=== PATIENT | female | born 1985 | race Caucasian/White ===

== ENCOUNTER 2019-02-25 11:53 | Observation (INO) ==
[2019-02-25] MEDS ORDERED: MoRPHine SULFATE 10 MG/ML CARP/VIAL SQ STA (13:03)
--- NOTE | 2019-02-25 13:28 | History & Physical Report ---
Date of Service February 25, 2019 Assessment & Plan (1) Antepartum bleeding, second trimester: 33 yo at 16 wks with h/o VB, increased today, pain / ctxs and open cervix, threatened FHR reassuring VSS afebrile Plan observe, monitor, pain control and labs and will discuss with MFM All questions were answered (2) Threatened in second trimester: History of Present Illness Chief Complaint: Vaginal bleeding/ pain, fever/ chills Primary Care Provider: Felton Amaya Patient is a 33 yo at 16 wks who has been having VB since 02/18/19 She passed a cloth and then her bleeding slowed down. She was in office on 02/22 and US showed normal FHR and placenta She started to have fever/ chill attacks yesterday morning Her temp was 99, 100, 101 and 102 this morning. She took Tylenol last nigh and per she broke her fever up this morning. She started to have sever lower abdominal pain/ cramping since 10 am They come and go every 3-5 min and last for about a minute Pain is 10 even 12 / 10 per her. Her bleeding increased this morning as well, she " gushed blood" in toilet No problems with urination nor BM She has h/o IBS but moved her bowels this morning. She has h/o recurrent SAB, 1st one was 6.5 wks but the 3 of them were very early, she had + HPT and strated to bleed and lost. No h/o kidney stones Allergies Allergy/AdvReac Type Severity Reaction Status Date / Time metronidazole [From Flagyl] Allergy Rash Unverified 01/29/19 18:32 Home Medications Home Medications Medication Instructions Recorded Confirmed Type magnesium oxide 400 mg PO BID 06/23/18 01/29/19 History PNV cmb#95-ferrous fumarate-FA 1 tab PO QAM 01/29/19 01/29/19 History [ Multivitamins] loratadine [Claritin] 10 mg PO QAM 01/29/19 01/29/19 History ranitidine HCl 150 mg PO BID 01/29/19 01/29/19 History Patient History Medical History Hiatal hernia GERD (gastroesophageal reflux disease) Osteoarthritis Fibromyalgia affecting forearm History of multiple miscarriages Family History Other No significant family history Social History Preferred Language: Pashto marital status: Single Current Living Situation: Family current occupational status: employed Feels Safe at Home: Yes Smoking Status: Never smoker [employer] History No h/o STD's Review of Systems All systems reviewed & are unremarkable except as noted in HPI & below Physical Exam Constitutional: WD/WN, vitals as above well developed, well nourished and + acute distress (acting like she is having ctxs, laboring) Gastrointestinal (Abdomen): soft, ctxs q 3-4 min, NT in between Genitourinary: SSE: about 10 cc of blood in vagina, cleaned,cervix open 1 cm, no active bleeding Results & Data Vital Signs (Past 12 Hours) Vital Signs Temp Pulse Resp BP 02/25/19 12:14 37.2 C 20 02/25/19 12:13 105 H 134/58 L Monitoring External Monitor FHR 150's Bed side US done: Single IUP, FM's seen, placenta fundal/ posterior, appears normal, no sign of abruption Tocodynamometer Unable to crop picker ctxs, due to small uterus size
[2019-02-25 13:38] LABS: Basophils # (auto) 0.02 K/uL (0-0.2); Basophils % (auto) 0.2 %; Eosinophils # (auto) 0.01 K/uL (0-0.5); Eosinophils % (auto) 0.1 %; Hematocrit (blood only) 35.7 % (37-47); Hemoglobin 12.6 g/dL (12.0-16.0); Immature Granulocytes # (auto) 0.04 K/uL (0.00-0.02); Immature Granulocytes % (auto) 0.3 %; Lymphocytes # (auto) 1.01 K/uL (1.2-3.4); Lymphocytes % (auto) 8.1 %; Mean Corpuscular Hemoglobin 31.8 pg (25-34); Mean Corpuscular Hgb Conc 35.3 g/dL (32-36); Mean Corpuscular Volume 90.2 fL (80-100); Monocytes # (auto) 0.97 K/uL (0.11-0.59); Monocytes % (auto) 7.8 %; Neutrophils # (auto) 10.44 K/uL (1.4-6.5); Neutrophils % (auto) 83.5 %; Platelet Count 223 K/uL (130-400); RDW Coefficient of Variation 12.3 % (11.5-14.5); RDW Standard Deviation 39.8 fL (36.4-46.3); Red Blood Count 3.96 M/uL (4.2-5.4); White Blood Count 12.49 K/uL (4.8-10.8)
[2019-02-25 13:55] LABS: Alanine Aminotransferase 48 U/L (12-78); Albumin Level 3.1 gm/dl (3.4-5.0); Aspartate Aminotransferase 37 U/L (15-37); BUN Creatinine Ratio 4.8 (10-20); Blood Urea Nitrogen 4 mg/dl (7-18); Calcium 9.1 mg/dl (8.5-10.1); Carbon Dioxide 21 mmol/L (21-32); Chloride 105 mmol/L (98-107); Est GFR (African American) 123.1; Est GFR (Non-African American) 106.2; Glucose 96 mg/dl (70-99); Potassium 3.2 mmol/L (3.5-5.1); Sodium 136 mmol/L (136-145)
[2019-02-25 13:58] LABS: Albumin Globulin Ratio 0.8 (0.9-2); Alkaline Phosphatase 91 U/L (45-117); Bilirubin,Total 0.4 mg/dl (0.2-1); Globulin 4.1 gm/dl (2.5-4.0); Total Protein 7.2 gm/dl (6.4-8.2)
--- NOTE | 2019-02-25 13:58 | Ultrasound Report ---
US OB limited CLINICAL HISTORY: 33 years-old Female presenting with Vaginal bleeding, cramping, abruption?, 16 week s with contractions and bleeding since 10:00 AM this morning. TECHNIQUE: Real-time grayscale and M-mode ultrasound imaging of the pelvis was performed using a rosenthal sabdominal probe for a second trimester evaluation. COMPARISON: None. FINDINGS: TRANSABDOMINAL: Transabdominal imaging was performed for a minimally invasive evaluation and to ensur e visualization of global pelvic findings. Bladder: Normal. Uterus: Single live intrauterine . size metrics: Femur length 2.1 cm corresponding to gestational age of 16 weeks 2 days. Biparietal diameter 3.3 cm corresponding to a gestational age of 16 weeks 1 day. heart rate: 151 beats per minute. Orientation: Anteverted uterus. Gestational s ac shape: Normal. Amniotic fluid volume: Normal amniotic fluid volume. Placenta: Posterior placental implantation. No perigestational fluid to suggest hemorrhage. Cervix: Grossly closed. No evidence of placenta previa. Cervical length: 3.5 cm. Right adnexa: Right ovary: Not interrogated. Left adnexa: Left ovary: Not interrogated. Other: No large volume free fluid. IMPRESSION: 1. Cervix closed and measuring 3.5 cm. No evidence of placenta previa. 2. Single live second trimester intrauterine with a gestational age of 16 weeks 1-2 days. This is concordant with the patient's history. Electronically signed by: Zachariah Pelayo M.D. 02/25/2019 1:57 PM
[2019-02-25 14:06] LABS: Fibrinogen 631 mg/dl (184-400); Partial Thromboplastin Time 26.6 Seconds (21.0-31.0); Prothrombin Time 10.3 Seconds (9.0-12.0)
[2019-02-25] MEDS ORDERED: MoRPHine SULFATE 4 MG/ML 1 ML CARP\\VIAL IV STA (14:12)
--- NOTE | 2019-02-25 14:47 | Obstetrical Progress Note ---
Date of Service February 25, 2019 Subjective Patient is reevaluated She received Morphine IV and feels better now She had labs and US: 02/25/19 02/25/19 02/25/19 Range/Units 13:16 13:16 13:16 WBC 12.49 H (4.8-10.8) K/uL RBC 3.96 L (4.2-5.4) M/uL Hgb 12.6 (12.0-16.0) g/dL Hct 35.7 L (37-47) % MCV 90.2 (80-100) fL MCH 31.8 (25-34) pg MCHC 35.3 (32-36) g/dL RDW Std Deviation 39.8 (36.4-46.3) fL RDW Coeff of Oneal 12.3 (11.5-14.5) % Plt Count 223 (130-400) K/uL MPV 9.0 (7.4-10.4) fL Immature Gran % (Auto) 0.3 % Neut % (Auto) 83.5 % Lymph % (Auto) 8.1 % [place] % (Auto) 7.8 % Eos % (Auto) 0.1 % Baso % (Auto) 0.2 % Immature Gran # (Auto) 0.04 H (0.00-0.02) K/uL Neut # (Auto) 10.44 H (1.4-6.5) K/uL Lymph # (Auto) 1.01 L (1.2-3.4) K/uL [place] # (Auto) 0.97 H (0.11-0.59) K/uL Eos # (Auto) 0.01 (0-0.5) K/uL Baso # (Auto) 0.02 (0-0.2) K/uL PT (9.0-12.0) Seconds INR (0.9-1.1) APTT (21.0-31.0) Seconds PTT Ratio Fibrinogen (184-400) mg/dl Sodium 136 (136-145) mmol/L Potassium 3.2 L (3.5-5.1) mmol/L Chloride 105 (98-107) mmol/L Carbon Dioxide 21 (21-32) mmol/L Anion Gap 10.0 (3-11) BUN 4 L (7-18) mg/dl Creatinine 0.75 (0.6-1.2) mg/dl Est Cr Clr Drug Dosing Not Reportable Est GFR ( Amer) 123.1 Est GFR (Non-Af Amer) 106.2 BUN/Creatinine Ratio 4.8 L (10-20) Glucose 96 (70-99) mg/dl Calcium 9.1 (8.5-10.1) mg/dl Total Bilirubin 0.4 (0.2-1) mg/dl AST 37 (15-37) U/L ALT 48 (12-78) U/L Alkaline Phosphatase 91 (45-117) U/L Total Protein 7.2 (6.4-8.2) gm/dl Albumin 3.1 L (3.4-5.0) gm/dl Globulin 4.1 H (2.5-4.0) gm/dl Albumin/Globulin Ratio 0.8 L (0.9-2) Blood Type B Positive Antibody Screen NEGATIVE Mother's Rh Status Maternal Bleed KB Cells Counted /Adult RBC Ratio 02/25/19 02/25/19 Range/Units 13:16 13:16 WBC (4.8-10.8) K/uL RBC (4.2-5.4) M/uL Hgb (12.0-16.0) g/dL Hct (37-47) % MCV (80-100) fL MCH (25-34) pg MCHC (32-36) g/dL RDW Std Deviation (36.4-46.3) fL RDW Coeff of Oneal (11.5-14.5) % Plt Count (130-400) K/uL MPV (7.4-10.4) fL Immature Gran % (Auto) % Neut % (Auto) % Lymph % (Auto) % [place] % (Auto) % Eos % (Auto) % Baso % (Auto) % Immature Gran # (Auto) (0.00-0.02) K/uL Neut # (Auto) (1.4-6.5) K/uL Lymph # (Auto) (1.2-3.4) K/uL [place] # (Auto) (0.11-0.59) K/uL Eos # (Auto) (0-0.5) K/uL Baso # (Auto) (0-0.2) K/uL PT 10.3 (9.0-12.0) Seconds INR 1.0 (0.9-1.1) APTT 26.6 (21.0-31.0) Seconds PTT Ratio 1.0 Fibrinogen 631 H (184-400) mg/dl Sodium (136-145) mmol/L Potassium (3.5-5.1) mmol/L Chloride (98-107) mmol/L Carbon Dioxide (21-32) mmol/L Anion Gap (3-11) BUN (7-18) mg/dl Creatinine (0.6-1.2) mg/dl Est Cr Clr Drug Dosing Est GFR ( Amer) Est GFR (Non-Af Amer) BUN/Creatinine Ratio (10-20) Glucose (70-99) mg/dl Calcium (8.5-10.1) mg/dl Total Bilirubin (0.2-1) mg/dl AST (15-37) U/L ALT (12-78) U/L Alkaline Phosphatase (45-117) U/L Total Protein (6.4-8.2) gm/dl Albumin (3.4-5.0) gm/dl Globulin (2.5-4.0) gm/dl Albumin/Globulin Ratio (0.9-2) Blood Type Antibody Screen Mother's Rh Status Pending Maternal Bleed Pending KB Cells Counted Pending /Adult RBC Ratio Pending US: Single viable IUP, no evidence of previa nor abruption Cervix 3.5 cm Discussed with MFM at [facility] [place], recommended expectant management with pain miley gement, IVF, Observation at hospital and no tocolytics I discussed above wth the patient and she is aware of management plan and prognosis, threatened or improvement of ctxs and bleeding and possible d/c home tomorrow All questions were answered Results & Data Vital Signs (Past 12 Hours) Vital Signs Temp Pulse Resp BP 02/25/19 12:14 37.2 C 20 02/25/19 12:13 105 H 134/58 L
[2019-02-25] MEDS ORDERED: LACTATED RINGER'S 1,000 ML IV ONE (14:50)
--- NOTE | 2019-02-25 16:06 | Obstetrical Progress Note ---
Date of Service February 25, 2019 Subjective Patient is reevaluated She got up to BR and passed a cloth Her pain is better now, 5/10, spaced out as well Bed side US repeated: FHR 140's, FM's seen, cervix appears the same, still 2.5 cm long and minimal dilatation on it ( 1 cm per SSE) Continue to observe, monitor All questions were answered Results & Data Vital Signs (Past 12 Hours) Vital Signs Temp Pulse Resp BP 02/25/19 12:14 37.2 C 20 02/25/19 12:13 105 H 134/58 L
[2019-02-25] MEDS: LACTATED RINGER'S 1,000 ML IV PRN ×2 (17:46→22:27)
[2019-02-25] MEDS: MoRPHine SULFATE 4 MG/ML 1 ML CARP\\VIAL IV PRN (18:38)
[2019-02-25] MEDS: MAGNESIUM OXIDE 400 MG TAB PO SCH (20:53)
--- NOTE | 2019-02-25 21:46 | Obstetrical Progress Note ---
Date of Service February 25, 2019 Subjective Patient is re-evaluated Feel much better, ctxs spaced out q 10-15 min, lasting shorter and less painful Bleeding slowed down as well, no more cloths, has not soaked any peds yet VSS Afebrile K-B test negative Plan to observe, monitor, repeat labs in am All questions were answered Results & Data Vital Signs (Past 12 Hours) Vital Signs Temp Pulse Resp BP 02/25/19 19:30 36.7 C 106 H 114/67 02/25/19 18:42 36.8 C 109 H 101/62 02/25/19 12:14 37.2 C 20 02/25/19 12:13 105 H 134/58 L
[2019-02-26] MEDS: ACETAMINOPHEN 325 MG TAB PO PRN ×2 (00:16→06:03)
--- NOTE | 2019-02-26 02:14 | Obstetrical Progress Note ---
Date of Service February 26, 2019 Subjective Patient is re-evaluated Feel much better, ctxs spaced out q 10-15 min, lasting shorter and less painful Bleeding slowed down as well, no more cloths, has not soaked any peds yet VSS Afebrile K-B test negative Plan to observe, monitor, repeat labs in am All questions were answered Results & Data Vital Signs (Past 12 Hours) Vital Signs Temp Pulse Resp BP 02/26/19 00:04 39.1 C H 103 H 18 112/53 L 02/26/19 00:03 100 H 89/50 L 02/25/19 19:30 36.7 C 106 H 114/67 02/25/19 18:42 36.8 C 109 H 101/62
--- NOTE | 2019-02-26 02:16 | Obstetrical Progress Note ---
Date of Service February 26, 2019 Subjective Patient felt hot ( was under warm blankets) and her temp was 39.1 Now feels better, up in the room No more ctxs nor bleeding No abdominal pain/ N&V Repeat Temp: 37 FHR 150's Abd: soft, NT Continue to monitor closely Results & Data Vital Signs (Past 12 Hours) Vital Signs Temp Pulse Resp BP 02/26/19 00:04 39.1 C H 103 H 18 112/53 L 02/26/19 00:03 100 H 89/50 L 02/25/19 19:30 36.7 C 106 H 114/67 02/25/19 18:42 36.8 C 109 H 101/62
[2019-02-26] MEDS: LACTATED RINGER'S 1,000 ML IV PRN ×3 (06:09→23:37)
[2019-02-26 06:53] LABS: Basophils # (auto) 0.01 K/uL (0-0.2); Basophils % (auto) 0.1 %; Hematocrit (blood only) 28.1 % (37-47); Hemoglobin 10.1 g/dL (12.0-16.0); Immature Granulocytes # (auto) 0.03 K/uL (0.00-0.02); Immature Granulocytes % (auto) 0.3 %; Lymphocytes # (auto) 0.66 K/uL (1.2-3.4); Lymphocytes % (auto) 6.2 %; Mean Corpuscular Hemoglobin 32.4 pg (25-34); Mean Corpuscular Hgb Conc 35.9 g/dL (32-36); Mean Corpuscular Volume 90.1 fL (80-100); Mean Platelet Volume 8.8 fL (7.4-10.4); Monocytes # (auto) 0.72 K/uL (0.11-0.59); Monocytes % (auto) 6.8 %; Neutrophils # (auto) 9.23 K/uL (1.4-6.5); Neutrophils % (auto) 86.6 %; Platelet Count 164 K/uL (130-400); RDW Coefficient of Variation 12.6 % (11.5-14.5); RDW Standard Deviation 40.8 fL (36.4-46.3); Red Blood Count 3.12 M/uL (4.2-5.4); White Blood Count 10.65 K/uL (4.8-10.8)
[2019-02-26 07:00] LABS: Appearance Urine Clear (Clear); Bilirubin Urine Negative (Negative); Blood Urine Negative (Negative); Color Urine Yellow; Glucose Urine UA Negative (Negative); Ketones Urine 1+ (Negative); Leukocyte Esterase Urine Negative (Negative); Nitrite Urine Negative (Negative); Protein Urine Negative (Negative); Specific Gravity Urine 1.008 (1.000-1.030); Urobilinogen Urine Negative (Negative); pH Urine 6.5 (4.5-7.5)
--- NOTE | 2019-02-26 07:03 | Obstetrical Progress Note ---
Date of Service February 26, 2019 Subjective Patient is seen and examined She had another episode of fever/ chills Temp: 38.9 No more abdominal pain and bleEding is scant No flu or cold symptoms No cough/ sore throat No dysuria/ diarrhea/ N&V CVS: S1S2 RRR Lungs: CTAB Abd: soft, NT, gravid Ext; NT no edema AP: 33 yo at 16.1 wks with VB, contractions, stopped after IVF and pain control with Morphine Febrile episodex2 Unlikely PPROM given normal IVF volume Normal Labs pending Will consult Hospitalist Start AB: Cefazolin and Clindamycin Conitnue to monitor closely Results & Data Vital Signs (Past 12 Hours) Vital Signs Temp Pulse Pulse Resp BP BP 02/26/19 05:40 38.9 C H 02/26/19 04:00 37.4 C 86 18 108/72 02/26/19 02:10 37.0 C 02/26/19 00:04 39.1 C H 103 H 18 112/53 L 02/26/19 00:03 100 H 89/50 L 02/25/19 19:30 36.7 C 106 H 114/67
[2019-02-26 07:06] LABS: Partial Thromboplastin Time 28.1 Seconds (21.0-31.0); Prothrombin Time 10.7 Seconds (9.0-12.0)
[2019-02-26 07:21] LABS: Fibrinogen 451 mg/dl (184-400)
[2019-02-26] MEDS ORDERED: CEFAZOLIN 2000MG 2,000 MG/15 ML SYR IV SCH (07:30)
[2019-02-26] MEDS ORDERED: PRENATAL VITAMIN 1 TAB PO SCH (09:00)
[2019-02-26] MEDS: CLINDAMYCIN 900 MG in DEXTROSE 5% 50 ML IV SCH ×2 (09:01→16:24)
[2019-02-26] MEDS: LORATADINE 10 MG TAB PO SCH (09:01)
[2019-02-26] MEDS ORDERED: Nursing to Pharmacy Communication ONE (09:13)
--- NOTE | 2019-02-26 09:15 | Hospitalist Consultation ---
Date of Consultation February 26, 2019 Assessment & Plan (1) Fever: -Patient admitted on 02/25 for observation of antepartum bleeding -Patient reports fevers for the past 3 days -24-hour T-max 39.1 -UA does not suggest infection; no pulmonary symptoms -Due to patient's reports of recent camping, will check Lyme titers; no pancytopenia or elevated LFTs noted on labs and therefore will not evaluate for anaplasmosis at this time -Started on empiric clindamycin and cefazolin as per OB, will continue for now -Does not appear septic -Follow blood and urine cultures (2) Antepartum bleeding, second trimester: -Management as per OB -Hgb stable (3) DVT prophylaxis: -SCDs, ambulate Supervising Physician Co-Signing Physician Notes Attending addendum: The patient was seen and examined in the presence of family members He has been complaining of fever 2 days prior to admission Did not have any other symptoms except nonspecific arthralgia/arthritis and body aches No cough and/or shortness of breath and no problem with urine and about Still having sweating and feeling of cold at times On examination Hemodynamically stable No apparent distress at rest Chest-clear to auscultate bilaterally Heart-S1-S2 regular, no murmur appreciated Abdomen-not examined Extremities-negative Her labs reviewed As fever likely due to viral illness no source of infection identified, Lyme titer was negative Will check peripheral blood smear for possible inclusion body disease and check C. difficile toxin as well Agree with assessment and plan as outlined above by Holli Ramirez History of Present Illness Reason for Consultation: Fever Requesting Physician: Dr. Davison Attending Physician: Dr. Ramirez History of Present Illness 33-year-old female who was admitted to the hospital on 02/25 for bleeding in her second trimester. Patient is currently 16 weeks . Hospitalist was consulted for management of fever. Patient reports she started developing fever and chills 2 days ago. She reports a fever as high as 102 at home. She was taking Tylenol with relief from the fevers. Patient was also bleeding/passing clots. She was admitted to the OB unit for observation. Patient reports urinary frequency however denies dysuria. Appetite has been poor over the past couple of days however she denies nausea, vomiting, diarrhea, abdominal pain. No chest pain. She reports some occasional shortness of breath and palpitations which have been going on for the past few months. Some occasional lig htheadedness and dizziness but denies any syncopal events. She denies any recent sick contacts. Patient was camping about 1 week ago. No other travel outside the country. At the time my exam, patient is resting in bed in no acute distress. Allergies Allergy/AdvReac Type Severity Reaction Status Date / Time metronidazole [From Flagyl] Allergy Rash Verified 02/25/19 18:14 Home Medications Home Medications Medication Instructions Recorded Confirmed Type loratadine [Claritin] 10 mg PO DAILY 02/25/19 02/25/19 History magnesium oxide 800 mg PO HS 02/25/19 02/25/19 History vit-iron fum-folic ac 1 tab PO DAILY 02/25/19 02/25/19 History [ Vitamin] ranitidine HCl [Zantac 75] 150 mg PO BID 02/25/19 02/25/19 History Patient History Medical History History of multiple miscarriages (Chronic) IBS (irritable bowel syndrome) (Chronic) Raynaud's disease (Chronic) Fibromyalgia (Chronic) Hiatal hernia (Chronic) GERD (gastroesophageal reflux disease) (Chronic) Osteoarthritis (Chronic) Family History Mother Bone cancer Social History Preferred Language: Turkish Beliefs That Will Affect Care: None marital status: Single Current Living Situation: Significant Other current occupational status: employed Other Information That Helps Us Care for You: No Feels Safe at Home: Yes Safety Concerns: Feels Safe At This Time Smoking Status: Never smoker Hx Alcohol Use: No Review of Systems Review of Systems: ROS per HPI, all other systems reviewed and negative Physical Exam Constitutional: WD/WN, vitals as above Eyes: PERRL, conjunctivae normal, anicteric sclerae ENMT: external ear and nose normal, oropharynx normal Respiratory: normal respiratory effort, lungs clear to auscultation Cardiovascular: Rate/Rhythm: regular rate and regular rhythm Vessels: normal peripheral pulses Extremities: no edema Gastrointestinal (Abdomen): normal bowel sounds, soft, nontender, no hepatosplenomegaly Musculoskeletal: no cyanosis or clubbing, extremities motor strength 5/5 Skin: no rashes, warm and dry Neurologic: PERRL, EOMI, accommodation nl, no face palsy, no dysarthria Psychiatric: A+Ox3, euthymic affect Results & Data Vital Signs (Past 12 Hours) Vital Signs Temp Pulse Pulse Resp BP BP Pulse Ox 02/26/19 08:08 36.7 C 98 H 20 108/61 99 02/26/19 05:40 38.9 C H 02/26/19 04:00 37.4 C 86 18 108/72 02/26/19 02:10 37.0 C 02/26/19 00:04 39.1 C H 103 H 18 112/53 L 02/26/19 00:03 100 H 89/50 L Laboratory Results Short CBC 02/25/19 02/26/19 Range/Units 13:16 06:19 WBC 12.49 H 10.65 (4.8-10.8) K/uL Hgb 12.6 10.1 L (12.0-16.0) g/dL Hct 35.7 L 28.1 L (37-47) % Plt Count 223 164 (130-400) K/uL BMP 02/25/19 13:16 Sodium 136 Potassium 3.2 L Chloride 105 Carbon Dioxide 21 BUN 4 L Creatinine 0.75 Glucose 96 Calcium 9.1 Liver Function 02/25/19 Range/Units 13:16 Total Bilirubin 0.4 (0.2-1) mg/dl AST 37 (15-37) U/L ALT 48 (12-78) U/L Alkaline Phosphatase 91 (45-117) U/L Albumin 3.1 L (3.4-5.0) gm/dl Urine 02/26/19 Range/Units 06:00 Urine Color Yellow Urine Appearance Clear (Clear) Urine pH 6.5 (4.5-7.5) Ur Specific [place] 1.008 (1.000-1.030) Urine Protein Negative (Negative) Urine Glucose (UA) Negative (Negative)
[2019-02-26 09:30] LABS: BUN Creatinine Ratio 6.1 (10-20); Blood Urea Nitrogen 3 mg/dl (7-18); Calcium 8.7 mg/dl (8.5-10.1); Carbon Dioxide 23 mmol/L (21-32); Chloride 109 mmol/L (98-107); Est GFR (African American) 145.7; Est GFR (Non-African American) 125.7; Glucose 87 mg/dl (70-99); Magnesium 2.1 mg/dl (1.8-2.4); Potassium 3.4 mmol/L (3.5-5.1); Sodium 140 mmol/L (136-145)
[2019-02-26] MEDS: ONDANSETRON INJ 2 MG/ML 2 ML VIAL IV PRN ×2 (09:44→13:40)
[2019-02-26 11:09] LABS: Lyme Ab IgG w/WB Rflx Negative (Negative)
[2019-02-26 11:17] LABS: Lyme Ab IgM w/WB Rflx Negative (Negative)
[2019-02-26] MEDS ORDERED: CEFAZOLIN 2,000 MG in DEXTROSE 5% 50 ML IV SCH (16:00)
[2019-02-26] MEDS: MoRPHine SULFATE 4 MG/ML 1 ML CARP\\VIAL IV PRN ×2 (16:35→18:52)
[2019-02-26] MEDS: MAGNESIUM OXIDE 400 MG TAB PO SCH (17:13)
[2019-02-26] MEDS ORDERED: MoRPHine SULFATE 2 MG/ML CARP IV PRN (18:52)
--- NOTE | 2019-02-26 18:54 | Obstetrical Progress Note ---
Date of Service February 26, 2019 Subjective Patient seen and examined She passed some clots from vagina with increasing abdominal pain 10/10 intensity Will continue expectant management Morphine IV prn pain Physical Exam Constitutional: WD/WN, vitals as above Results & Data Vital Signs (Past 12 Hours) Vital Signs Temp Pulse Resp BP Pulse Ox 02/26/19 16:00 37.4 C 112 H 20 112/71 100 02/26/19 11:50 37.2 C 96 H 18 96/48 L 100 02/26/19 08:08 36.7 C 98 H 20 108/61 99
[2019-02-26] MEDS ORDERED: ACETAMINOPHEN 1,000 MG/100 ML VIAL IV PRN (22:26)
[2019-02-26] MEDS ORDERED: LORazepam 1 MG/2 ML VIAL IV ONE (23:30)
[2019-02-26] MEDS ORDERED: MoRPHine SULFATE 4 MG/ML 1 ML CARP\\VIAL ONE (23:32)
[2019-02-26] MEDS ORDERED: miSOPROStol 200 MCG TAB ONE (23:37)
[2019-02-26] MEDS: CEFAZOLIN 2,000 MG in DEXTROSE 5% 50 ML IV SCH ×2 (23:52→23:57)
[2019-02-27] MEDS ORDERED: BENZOCAINE 20% AER SPR 82.5 GM CAN EXT PRN (00:12)
[2019-02-27] MEDS ORDERED: HYDROCORTISONE ACETATE 25 MG SUPP PR PRN (00:12)
[2019-02-27] MEDS ORDERED: BISACODYL 10 MG SUPP PR PRN (00:12)
[2019-02-27] MEDS ORDERED: OXYTOCIN 30 UNITS/500 ML BAG IV PRN (00:12)
[2019-02-27] MEDS ORDERED: miSOPROStol 200 MCG TAB PR ONE ×2 (00:12→01:55)
[2019-02-27] MEDS ORDERED: MEASLES, MUMPS & RUBELLA VIRUS VIAL SQ ONE (00:12)
[2019-02-27] MEDS ORDERED: IBUPROFEN 600 MG TAB PO PRN ×2 (00:12→01:43)
[2019-02-27] MEDS ORDERED: SUPERCREAM 0.870% 15 GM JAR EXT PRN (00:12)
[2019-02-27] MEDS ORDERED: ACETAMINOPHEN 325 MG TAB PO PRN ×2 (00:12→01:43)
[2019-02-27] MEDS ORDERED: DIPHTHERIA/TETANUS/PERTUSSIS 0.5 ML SYR/VIAL IM ONE (00:12)
[2019-02-27] MEDS ORDERED: LACTATED RINGER'S 1,000 ML IV SCH ×2 (00:15→01:45)
--- NOTE | 2019-02-27 00:43 | History & Physical Bridge Note ---
Date of Service February 27, 2019 History & Physical Bridge Note I have examined the patient, reviewed the History & Physical and in the interval since the performance of the History & Physical I have noted the following changes of clinical significance: no changes noted
--- NOTE | 2019-02-27 00:50 | Delivery Summary ---
Vaginal Delivery Summary Date of Service February 27, 2019 Vaginal Delivery Summary female at 16.2 weeks over intact perineum with Apgars pending. Baby had arm movement and heartbeat at delivery then shortly thereafter. Placenta remained in uterus. Cytotec 1000 mcg given but no delivery of placenta. Patient continues to have vaginal bleeding and will do a D&C to remove placenta and control bleeding. Final sponge and instrument count are correct. [id number] ml. Consents signed. Anesthesia and OR notified.
--- NOTE | 2019-02-27 00:57 | Anesthesiology Consultation ---
Date of Service February 27, 2019 Assessment & Plan (1) Encounter for pre-operative examination: Chart Review Chart Review: Acceptable Risk for Surgery and Patient NOT seen in Pre Admission Testing Consults Requested none History Surgery Operation Date: 02/27/19 01:00 Proposed Procedures p Dilatation and Evacuation - Ravin Hoang MD Allergies Allergy/AdvReac Type Severity Reaction Status Date / Time metronidazole [From Flagyl] Allergy Rash Verified 02/25/19 18:14 Medications Home Medications Medication Instructions Recorded Confirmed Last Taken loratadine [Claritin] 10 mg PO DAILY 02/25/19 02/25/19 02/25/19 08:00 magnesium oxide 800 mg PO HS 02/25/19 02/25/19 02/24/19 21:00 vit-iron fum-folic ac 1 tab PO DAILY 02/25/19 02/25/19 02/25/19 08:00 [ Vitamin] ranitidine HCl [Zantac 75] 150 mg PO BID 02/25/19 02/25/19 02/25/19 08:00 Active Medications Generic Name Dose Route Start Last Admin Trade Name Freq PRN Reason Stop Dose Admin Acetaminophen 650 mg 02/25/19 14:42 02/26/19 06:03 Tylenol PO 03/27/19 14:41 650 mg Q4H PRN Administration Pain Lactated Ringer's 1,000 mls @ 125 mls/hr 02/25/19 13:00 02/26/19 23:37 Lr IV 03/27/19 12:59 125 mls/hr .Q8H PRN Administration L&D Protocol Protocol Clindamycin Phosphate 900 mg/ 56 mls @ 112 mls/hr 02/26/19 07:00 02/26/19 16:54 Dextrose IV 03/08/19 06:59 Infused Q8H MELVI Infusion Cefazolin Sodium 2,000 mg/ 65 mls @ 130 mls/hr 02/27/19 00:00 02/26/19 23:57 Dextrose IV 03/08/19 07:59 130 mls/hr Q8H MELVI Administration Acetaminophen 1,000 mg in 100 mls @ 400 mls/hr 02/26/19 22:26 02/26/19 22:58 Ofirmev IV 03/28/19 22:25 Infused Q8H PRN Infusion Pain Loratadine 10 mg 02/26/19 09:00 08/09/19 09:01 Claritin PO 03/28/19 08:59 10 mg QAM MELVI Administration Morphine Sulfate 2 mg 02/26/19 18:52 02/26/19 21:42 Morphine Sulfate IV 03/11/19 14:42 2 mg Q1HWA PRN Administration Pain Ondansetron HCl 4 mg 02/25/19 13:00 02/26/19 13:40 Zofran IV 03/27/19 12:59 4 mg Q4H PRN Administration Nausea And Vomiting Prenat Multivit/[place]/Iron/Folic Ac 1 tab 02/26/19 09:00 02/26/19 09:01 Vitamin PO 03/28/19 08:59 1 tab QAM MELVI Administration Ranitidine HCl 150 mg 02/25/19 21:00 02/26/19 20:53 Zantac PO 03/27/19 20:59 150 mg BID MELVI Administration Past Medical History Medical History History of multiple miscarriages (Chronic) IBS (irritable bowel syndrome) (Chronic) Raynaud's disease (Chronic) Fibromyalgia (Chronic) Hiatal hernia (Chronic) GERD (gastroesophageal reflux disease) (Chronic) Osteoarthritis (Chronic) Retained placenta with hemorrhage Past Family History Family History Mother Bone cancer Social History Smoking Status: Never smoker Hx Alcohol Use: No substance use type: other Substance Use Type Other:: HAS MEDICAL MARIJUANA CARD. HAS NOT USED SINCE + HPT. Physical Exam Vital Signs Last Vital Signs Temp 37.4 C 02/26/19 19:45 Pulse 118 H 02/27/19 00:56 Resp 18 02/26/19 19:45 BP 116/66 02/27/19 00:56 Pulse Ox 98 02/26/19 19:45 Testing Laboratory Results 02/26/19 06:19 02/26/19 08:48 PT 10.7 Seconds (9.0-12.0) 02/26/19 06:19 INR 1.0 (0.9-1.1) 02/26/19 06:19 APTT 28.1 Seconds (21.0-31.0) 02/26/19 06:19 Urine Color Yellow 02/26/19 06:00 Urine Appearance Clear (Clear) 02/26/19 06:00 Urine pH 6.5 (4.5-7.5) 02/26/19 06:00 Ur Specific [place] 1.008 (1.000-1.030) 02/26/19 06:00 Urine Protein Negative (Negative) 02/26/19 06:00 Urine Glucose (UA) Negative (Negative) 02/26/19 06:00 Urine Ketones 1+ (Negative) H 02/26/19 06:00 Urine Nitrite Negative (Negative) 02/26/19 06:00 Ur Leukocyte Esterase Negative (Negative) 02/26/19 06:00 Blood Type B Positive 02/25/19 13:16 Antibody Screen NEGATIVE 02/25/19 13:16
[2019-02-27] MEDS ORDERED: fentaNYL citrate 100 MCG/2 ML VIAL ONE (01:01)
[2019-02-27] MEDS ORDERED: LIDOCAINE HCL 2% 2 ML VIAL/AMP(20MG/ML) INFIL ONE (01:02)
[2019-02-27] MEDS ORDERED: PROPOFOL IV EMULSION 10 MG/ML 20 ML VIAL IV ONE (01:02)
[2019-02-27] MEDS ORDERED: HYDROmorphone INJ 1 MG/ML SYRINGE IV PRN (01:14)
[2019-02-27] MEDS ORDERED: MEPERIDINE HCL 25 MG/ML CARP IV PRN (01:14)
[2019-02-27] MEDS ORDERED: ONDANSETRON INJ 2 MG/ML 2 ML VIAL IV PRN (01:14)
[2019-02-27] MEDS ORDERED: ATROPINE SULFATE 0.1 MG/ML 10ML SYR IV PRN (01:14)
[2019-02-27] MEDS ORDERED: ePHEDrine sulfate 50 MG/ML AMP IV PRN (01:14)
[2019-02-27] MEDS ORDERED: PHENYLEPHRINE 100MCG/ML 5ML SYR IV PRN (01:14)
[2019-02-27] MEDS ORDERED: fentaNYL citrate 100 MCG/2 ML VIAL IV PRN (01:14)
[2019-02-27] MEDS ORDERED: LABETALOL HCL IV 5 MG/ML 20ML IV PRN (01:14)
[2019-02-27] MEDS ORDERED: miSOPROStol 200 MCG TAB ONE (01:26)
[2019-02-27] MEDS ORDERED: DEXAMETHASONE SOD INJ 4 MG/ML VIAL ONE (01:30)
[2019-02-27] MEDS ORDERED: ONDANSETRON INJ 2 MG/ML 2 ML VIAL ONE (01:30)
[2019-02-27] MEDS ORDERED: OXYTOCIN 10 UNITS/ML VIAL ONE (01:34)
--- NOTE | 2019-02-27 01:39 | Post Operative Brief Note ---
Immediate Post Op Note v1 Date of Surgery February 27, 2019 Pre & Post Diagnosis Operation Date: 02/27/19 01:00 Pre-Op Diagnosis: Retained placenta Post-Op Diagnosis: Retained placenta Procedure Operation Date: 02/27/19 01:00 Actual Procedures p Dilatation, Evacuation, and Curettage - Ravin Hoang MD Surgeon Ravin Hoang MD Factory Representative none Estimated Blood Loss 150 Findings Consistent with Post-Op Diagnosis retained placenta Fluids 600 ml Specimens placenta Anesthesia Type General Complications none Disposition Accompanied Patient To Recovery: Yes Disposition: Surgical ICU Overlapping Procedure I was present for: the critical portions of procedure. I was immediately available: during the entire case. Back up surgeon: was not required during procedure.
[2019-02-27] MEDS ORDERED: KETOROLAC 30 MG/ML VIAL IV PRN (01:43)
[2019-02-27] MEDS ORDERED: ACETAMINOPHEN 1,000 MG/100 ML VIAL IV PRN (01:43)
[2019-02-27] MEDS ORDERED: MoRPHine SULFATE 2 MG/ML CARP IV PRN (01:43)
--- NOTE | 2019-02-27 01:54 | Anesthesiology Progress Note ---
Date of Service February 27, 2019 Anesthesia Post Procedure Vital Signs Vital Signs: Temp Pulse Pulse Resp BP BP Pulse Ox 02/27/19 00:56 118 H 116/66 02/27/19 00:46 120 H 110/65 02/27/19 00:42 112 H 114/59 L 02/27/19 00:15 37.1 C 18 02/26/19 19:45 37.4 C 114 H 18 98 02/26/19 16:00 37.4 C 112 H 20 112/71 100 02/26/19 11:50 37.2 C 96 H 18 96/48 L 100 02/26/19 08:08 36.7 C 98 H 20 108/61 99 02/26/19 05:40 38.9 C H 02/26/19 04:00 37.4 C 86 18 108/72 02/26/19 02:10 37.0 C Pain Intensity Bilateral Back: Pain Intensity: 3 Transfer of Care Handoff Completed per policy Notes Mental Status: alert / awake / arousable Patient Amnestic to Procedure: Yes Nausea / Vomiting: adequately controlled Pain: adequately controlled Airway Patency, RR, SpO2: stable & adequate BP & HR: stable & adequate Hydration State: stable & adequate Anesthetic Complications: no major complications apparent and Pt Satisfied with anesthetic care Notes: The patient is awake and stable.
--- NOTE | 2019-02-27 01:56 | Post Operative Brief Note ---
Immediate Post Op Note v1 Date of Surgery February 27, 2019 Pre & Post Diagnosis Operation Date: 02/27/19 01:00 Pre-Op Diagnosis: Retained placenta Post-Op Diagnosis: Retained placenta Procedure Operation Date: 02/27/19 01:00 Actual Procedures p Dilatation, Evacuation, and Curettage - Ravin Hoang MD Surgeon Ravin Hoang MD Territory Account Executive none Estimated Blood Loss 150 Findings Consistent with Post-Op Diagnosis Specimens placenta Anesthesia Type General
--- NOTE | 2019-02-27 05:30 | Operative Report ---
PREOPERATIVE DIAGNOSIS: Retained placenta. POSTOPERATIVE DIAGNOSIS: Retained placenta. PROCEDURE: D&C. SURGEON: Ravin Hoang MD SPRING ASSEMBLER SUPERVISOR: None. ANESTHESIA: General. COMPLICATIONS: None. FINDINGS: Retained placenta. TOTAL FLUIDS: 600 mL. EBL: 150 mL. Cobian catheter drained 400 mL clear urine. COMPLICATIONS: None. CLINICAL HISTORY: The patient is a 33-year-old female para 0-0-4-0 who delivered a nonviable fetus at 16.2 weeks. She had a retained placenta with bleeding and was taken to the OR for retained placenta. CLINICAL FINDINGS AND SURGERY: The patient is a 33-year-old female who had informed consent. Consents signed. The patient was then placed in the dorsal lithotomy position after general anesthesia. Timeout was called prior to the start of the procedure. The bladder was emptied of 400 mL of clear urine. The vagina was full of clots which were sucked out with suction machine. A single ring forceps were placed on the anterior lip of the cervix. Weighted speculum was in the posterior vault. Another ring forceps were then used to grasp the placenta which was removed manually in several pieces. A sharp horseshoe curet was then used curetting out minimal amounts of tissue. Pitocin was started in the IV. No active bleeding was noted. At the end of the procedure, 1000 mcg of Cytotec were placed rectally. The final sponge, needle and instrument count were found to be correct. All remaining instruments were removed. The patient was then placed supine on a stretcher and taken to recovery room in stable condition.
[2019-02-27 07:36] LABS: Basophils # (auto) 0.01 K/uL (0-0.2); Basophils % (auto) 0.1 %; Hematocrit (blood only) 24.3 % (37-47); Hemoglobin 8.7 g/dL (12.0-16.0); Immature Granulocytes # (auto) 0.04 K/uL (0.00-0.02); Immature Granulocytes % (auto) 0.3 %; Lymphocytes # (auto) 0.81 K/uL (1.2-3.4); Lymphocytes % (auto) 6.4 %; Mean Corpuscular Hemoglobin 31.6 pg (25-34); Mean Corpuscular Hgb Conc 35.8 g/dL (32-36); Mean Corpuscular Volume 88.4 fL (80-100); Mean Platelet Volume 8.9 fL (7.4-10.4); Monocytes # (auto) 0.16 K/uL (0.11-0.59); Monocytes % (auto) 1.3 %; Neutrophils # (auto) 11.66 K/uL (1.4-6.5); Neutrophils % (auto) 91.9 %; Platelet Count 170 K/uL (130-400); RDW Coefficient of Variation 12.7 % (11.5-14.5); RDW Standard Deviation 40.8 fL (36.4-46.3); Red Blood Count 2.75 M/uL (4.2-5.4); White Blood Count 12.68 K/uL (4.8-10.8)
[2019-02-27] MEDS ORDERED: DOCUSATE SODIUM 100 MG CAP PO SCH (08:00)
[2019-02-27] MEDS ORDERED: PRENATAL VITAMIN 1 TAB PO SCH (08:00)
[2019-02-27] MEDS ORDERED: NON-FORMULARY MEDICATION (Prenatal Vit-Iron Fum-Folic Ac [Prenatal Vitamin] 1 TAB) PO SCH (09:00)
[2019-02-27] MEDS ORDERED: LORATADINE 10 MG TAB PO SCH (09:00)
[2019-02-27] MEDS: LORATADINE 10 MG TAB PO SCH (10:11)
--- NOTE | 2019-02-27 10:44 | Obstetrical Progress Note ---
Date of Service February 27, 2019 Assessment & Plan (1) demise before 20 weeks with retention of fetus: demise at 16 weeks s/p D&E for retained placenta' pt doing well' d/c home with instructions Subjective Ambulation: ambulating normally Voiding: no voiding problems Passing Gas:: Yes Diet Tolerance:: regular diet Lochia:: Small Feeding Type:: breast feeding Review of Systems All systems reviewed & are unremarkable except as noted in HPI & below Physical Exam Constitutional WD/WN, vitals as above well developed and well nourished Eyes PERRL, conjunctivae normal, anicteric sclerae Neck trachea midline, no thyromegaly Respiratory normal respiratory effort, lungs clear to auscultation Auscultation: no crackles, no rales and no wheezes Cardiovascular RRR, no murmur, no edema Gastrointestinal (Abdomen) normal bowel sounds, soft, nontender, no hepatosplenomegaly Uterus is below umbilicus Musculoskeletal no cyanosis or clubbing, extremities motor strength 5/5 Skin no rashes, warm and dry Neurologic patellar DTR's 2+ bilat, sensation intact Psychiatric A+Ox3, euthymic affect Genitourinary normal external appearance Results & Data Vital Signs (Past 12 Hours) Vital Signs Temp Pulse Pulse Pulse Resp BP BP 02/27/19 08:50 36.4 C L 88 16 102/66 02/27/19 06:10 36.8 C 101 H 18 108/65 02/27/19 05:10 36.8 C 97 H 18 111/75 02/27/19 04:10 37.5 C 98 H 18 112/73 02/27/19 03:40 37.3 C 94 H 18 95/63 L 02/27/19 03:05 36.8 C 88 18 100/67 02/27/19 02:50 37.1 C 105 H 18 108/72 02/27/19 02:30 37.0 C 87 16 108/64 02/27/19 02:20 37.0 C 89 16 106/61 02/27/19 02:10 36.8 C 879 H 16 110/49 L 02/27/19 02:00 36.8 C 89 16 108/50 L 02/27/19 01:51 36.8 C 108 H 16 110/58 L 02/27/19 00:56 118 H 116/66 08/10/19 00:46 120 H 110/65 02/27/19 00:42 112 H 114/59 L 02/27/19 00:15 37.1 C 18 Pulse Ox 02/27/19 08:50 100 02/27/19 06:10 100 02/27/19 05:10 97 02/27/19 04:10 97 02/27/19 03:40 94 02/27/19 03:05 94 02/27/19 02:50 96 02/27/19 02:30 95 02/27/19 02:20 94 02/27/19 02:10 95 02/27/19 02:00 94 02/27/19 01:51 98 02/27/19 00:56 02/27/19 00:46 02/27/19 00:42 02/27/19 00:15
--- NOTE | 2019-02-27 17:34 | Hospitalist Progress Note ---
Date of Service February 27, 2019 Assessment & Plan (1) Fever: -Patient admitted on 02/25 for observation of antepartum bleeding -Patient reports fevers for the past 3 days -24-hour T-max 39.1 -UA does not suggest infection; no pulmonary symptoms -Due to patient's reports of recent camping, will check Lyme titers; no pancytopenia or elevated LFTs noted on labs and therefore will not evaluate for anaplasmosis at this time -Started on empiric clindamycin and cefazolin as per OB, will continue for now -Does not appear septic -Follow blood and urine cultures-negative -Remained afebrile since yesterday and white count remained normal -The patient was discharged this morning (2) Antepartum bleeding, second trimester: -Management as per OB -Hgb stable -Has had presented delivery and the baby -Retained placenta-management as per SUPERINTENDENT TRANSPORTATION (3) DVT prophylaxis: -SCDs, ambulate Medically stable to be discharged Subjective 02/26 The patient was seen and examined in the presence of family members He has been complaining of fever 2 days prior to admission Did not have any other symptoms except nonspecific arthralgia/arthritis and body aches No cough and/or shortness of breath and no problem with urine and about Still having sweating and feeling of cold at times 02/27 The patient was seen and examined in medical floor She is a status post vaginal delivery (the baby ) with retained placenta Has some pain in the lower abdomen but denies any other symptoms Review of Systems Constitutional: + sweats and + fatigue; no fever and no chills Physical Exam Physical Exam: No apparent distress at rest Constitutional: well developed and well nourished; no acute distress Eyes: PERRL, conjunctivae normal, anicteric sclerae ENMT: external ear and nose normal, oropharynx normal Mouth: + chipped teeth Mallampati Class: II Neck: trachea midline, no thyromegaly normal visual inspection Respiratory: normal respiratory effort Auscultation: lungs clear to auscultation bilaterally; no crackles, no rales and no wheezes Cardiovascular: Rate/Rhythm: regular rate and regular rhythm Extremities: no edema Gastrointestinal (Abdomen): normal bowel sounds, soft, nontender, no hepatosplenomegaly Musculoskeletal: no cyanosis or clubbing, extremities motor strength 5/5 Skin: no rashes, warm and dry Neurologic: patellar DTR's 2+ bilat, sensation intact moves all extremities Psychiatric: A+Ox3, euthymic affect Orientation: alert and oriented x 3 Genitourinary: normal external appearance Results & Data Vital Signs (Past 12 Hours) Vital Signs Temp Pulse Pulse Resp BP Pulse Ox 02/27/19 11:02 36.4 C L 87 88 16 102/66 100 02/27/19 08:50 36.4 C L 88 16 102/66 100 02/27/19 06:10 36.8 C 101 H 18 108/65 100 Laboratory Results Short CBC 02/27/19 Range/Units 07:23 WBC 12.68 H (4.8-10.8) K/uL Hgb 8.7 L (12.0-16.0) g/dL Hct 24.3 L (37-47) % Plt Count 170 (130-400) K/uL
[2019-02-27] MEDS ORDERED: MAGNESIUM OXIDE 400 MG TAB PO SCH (21:00)
[2019-02-28] MEDS ORDERED: BISACODYL 5 MG TABEC PO SCH (20:00)
--- NOTE | 2019-03-04 00:44 | Discharge Summary ---
REASON FOR ADMISSION AND HOSPITAL COURSE: The patient is a 33-year-old female who was admitted 02/25/2019 with vaginal bleeding at 16 weeks' . The patient had an ultrasound, which revealed a viable without any evidence of an abruption. She had abdominal pain with a fever. Hospitalist consultation was obtained. The patient was placed on IV antibiotics for presumed possible chorioamnionitis. The patient subsequently went into labor and on 02/27/2019, she delivered a nonviable female at 16 weeks and 2 days over an intact perineum. The baby lived for a short period of time. After delivery, the placenta was retained and the patient had some bleeding and was sent to the OR where a D&C was done to remove the placenta. Removal of the placenta was accomplished with ring forceps. There were no complications. The patient subsequently was discharged home 02/27/2019 in stable condition. Home going instructions were given. The patient given instructions to follow up in the office. Condition on discharge is stable. Regular diet on discharge, Motrin as needed for pain. FINAL DISCHARGE DIAGNOSIS: Severe nonviable delivery of a female fetus.
== END 2019-02-27 12:47 | disposition home or self-care (01) ==
LOC: OPB 11:53 → 4S1 11:53 → 4S2 19:28 → 4N 02-27 03:13